=== PATIENT | male | born 1980 | race Caucasian/White ===

== ENCOUNTER 2023-02-14 09:31 | Outpatient (CLI) | payer OTHER, SELFPAY ==
[2023-02-14 18:29] LABS: Anion Gap 9 mmol/L (8-16); Blood Urea Nitrogen 18 mg/dL (9-20); Carbon Dioxide 30 mmol/L (22-30); Chloride 102 mmol/L (98-107); Cholesterol 190 mg/dL (0-200); Estimated Glomerular Filt Rate > 60; Glucose 104 mg/dL (65-110); HDL Direct 26 mg/dL; Potassium 4.1 mmol/L (3.4-5.0); Sodium 141 mmol/L (137-145); Triglycerides 524 mg/dL (<150)
[2023-02-14 18:32] LABS: Basophils Absolute Auto 0.1 K/mm3 (0.0-0.1); Basophils Percent Auto 0.9 % (0.2-1.2); Eosinophils Absolute Auto 0.1 K/mm3 (0-0.3); Eosinophils Percent Auto 1.4 % (0-4.4); Hematocrit 47.6 % (42.0-52.0); Hemoglobin 15.6 g/dL (14.0-18.0); Immature Granulocyte Absolute 0.04 K/mm3 (0.00-0.031); Immature Granulocyte Percent A 0.5 % (0-0.5); Lymphocytes Absolute Auto 1.77 K/mm3 (0.9-3.2); Lymphocytes Percent Auto 22.5 % (18.3-44.2); Mean Corpuscular HGB Conc 32.8 g/dl (32-36); Mean Corpuscular Hemoglobin 29.1 pg (26-34); Mean Corpuscular Volume 88.8 fl (80-100); Mean Platelet Volume 11.8 fl (7.4-10.4); Monocytes Absolute Auto 0.6 K/mm3 (0.1-0.6); Monocytes Percent Auto 7.3 % (2.6-8.5); Neutrophils Absolute Auto 5.3 K/mm3 (1.3-6.7); Neutrophils Percent Auto 67.4 % (45.5-73.1); Platelet Count Result 195 k/mm3 (150-375); Red Blood Count 5.36 M/mm3 (4.6-6.20); Red Cell Distribution Width 13.3 % (11.5-14.5); White Blood Count 7.9 K/mm3 (4.5-10.0)
[2023-02-14 18:39] LABS: LDL Cholesterol Direct 71 mg/dL
== END 2023-02-14 09:32 | disposition home or self-care (01) ==
LOC: ANHGOSHLAB 09:32
PROVIDERS: PCP Family Medicine; Visit Provider Nurse Practitioner Family
DX: Z00.00 Encounter for general adult medical examination without abnormal findings (principal)
CPT/HCPCS: 36415; 80048; 80061; 84443; 85025

== ENCOUNTER → 2023-04-02 14:37 | Outpatient (CLI) | payer OTHER, SELFPAY ==
--- NOTE | ~2023-04-02 | MR_ITS ---
EXAMINATION: MR lumbar spine wo con DATE: 04/02/2023 15:18 INDICATION: Other intervertebral disc displacement. Low back pain. TECHNIQUE: Magnetic resonance imaging (MRI) of the lumbar spine was performed without intravenous con trast. Sequences included sagittal T2-weighted FSE, sagittal T2-weighted FS FSE, sagittal T1-weighted FSE, and axial T2-weighted FSE. COMPARISON: Lumbar spine MRI 11/24/2017 FINDINGS: There is 3 mm retrolisthesis of L2 on L3 and L3 on L4. There is a chronic right L5 pars def ect. There is 3 mm anterolisthesis of L5 on S1. There are Schmorl's nodes in multiple levels. There i s mildly decreased disc height at L2-L3 and L3-L4 and severely decreased disc height at L4-L5. The di stal spinal cord signal intensity is normal. The conus medullaris is at L1. The following disc levels are specifically discussed: L1-L2: There is a central protrusion. There is moderate bilateral facet joint osteoarthritis. There i s no neural foraminal stenosis. There is mild central canal stenosis. L2-L3: The disc is bulging. There is moderate bilateral facet joint osteoarthritis. There is mild yosvany ateral neural foraminal stenosis. There is mild central canal stenosis. L3-L4: The disc is bulging and has an annular fissure. There is mild right and moderate left facet lamar int osteoarthritis. There is mild bilateral neural foraminal stenosis. There is mild central canal st enosis. L4-L5: The disc is bulging with superimposed central extrusion. There is mild right and moderate left facet joint osteoarthritis. There is mild bilateral neural foraminal stenosis. There is mild central canal stenosis. L5-S1: The disc is bulging. There is severe bilateral facet joint osteoarthritis. There is no neural foraminal stenosis. There is mild central canal stenosis. IMPRESSION: 1. Severe lumbar spondylosis, slightly worsened from 11/24/2017. 2. Chronic right L5 pars defect. Reviewed, dictated and finalized at location A.
== END ==
PROVIDERS: PCP Family Medicine; Visit Provider Nurse Practitioner Family
DX: M51.27 Other intervertebral disc displacement, lumbosacral region (principal); M54.9 Dorsalgia, unspecified; M43.06 Spondylolysis, lumbar region; M53.86 Other specified dorsopathies, lumbar region
CPT/HCPCS: 72148

== ENCOUNTER 2023-08-06 16:05 | Outpatient (CLI) | payer OTHER, SELFPAY ==
--- NOTE | ~2023-08-06 | XR_ITS ---
EXAM: XR ankle LT min 3V DATE: 08/06/2023 16:16 HISTORY: Effusion,swelling, medial left ankle pain x1.5month, no inj . COMPARISON: None available. FINDINGS: Normal mineralization. No fracture or dislocation. No lytic or blastic lesion. Mild degene rative change at the tibiotalar joint. Moderate plantar enthesopathy. No erosion or periosteal change . Soft tissues within normal limits. IMPRESSION: No acute osseous finding in the left ankle. Reviewed, dictated and finalized at location K. ECT PRODUCT MANAGER
== END 2023-08-06 16:06 ==
PROVIDERS: PCP Nurse Practitioner Family; Visit Provider Nurse Practitioner Family
DX: M25.472 Effusion, left ankle (principal)
CPT/HCPCS: 73610

== ENCOUNTER 2023-08-27 08:03 | Outpatient (CLI) | payer OTHER, SELFPAY ==
--- NOTE | ~2023-08-27 | MR_ITS ---
EXAMINATION: MR ankle LT wo con DATE: 08/27/2023 09:02 INDICATION: Left ankle effusion with pain and burning sensation at the medial ankle TECHNIQUE: Magnetic resonance imaging (MRI) of the left ankle was performed without intravenous contr ast. Sequences included sagittal, coronal, and axial proton-density weighted fast spin echo without a nd with fat saturation. COMPARISON: None. FINDINGS: Medial ankle ligaments: Deep and superficial deltoid ligaments as well as the spring ligament are normal. Lateral ankle ligaments: The anterior and posterior inferior tibiofibular ligaments are normal. The anterior talofibular, calc aneofibular and posterior talofibular ligaments are normal. Tendons: Achilles tendon is normal. Small amount of fluid in the peroneal tendon sheath consistent with mild t enosynovitis. The peroneus longus longus tendon is normal. There is mild tendinopathy and a longitudi nal split tear of the peroneus brevis tendon which appears distal to the level of the tip of the late ral malleolus. The tibialis anterior and extensor hallucis longus and extensor digitorum longus tendo ns are normal. The flexor digitorum longus and flexor hallucis longus tendons are normal. Additional mild tibialis posterior tenosynovitis. There is moderate tendinopathy of the tibialis posterior tendo n with full-thickness tear with the ragged tear margins position 3 cm above level of the tibiotalar j oint line. The proximal and distal tear margins are within relatively close proximity however estimat e that there is up to 3 cm retraction of the tear. Quantitative assessment is however limited due to the irregular margins and length of the tendon over which the tear occurs. Plantar fascia: Mild thickening and increased signal of the central component of the plantar aponeurosis with small e nthesophyte at its calcaneal origin consistent with mild chronic enthesopathy. No associated marrow o r surrounding soft tissue edema to suggest acute plantar fasciitis. Bones/other: There is localized mild likely reactive marrow edema along the retromalleolar groove of the medial ma lleolus underlying the torn tibialis posterior tendon. There is also some surrounding subcutaneous ed erika. Bone alignment is normal. No fracture or pathologic marrow replacing process. Prominent enthesop hytes along the dorsal rim of the head of the talus. Mild osteoarthritis at the ankle, talonavicular joint and the anterior facet of the subtalar joint. Fluid: Physiologic amount fluid in the joint spaces. IMPRESSION: 1. Tibialis posterior tenosynovitis, moderate tendinopathy and full-thickness tear. 2. Mild peroneal tenosynovitis with mild tendinopathy and longitudinal split tear of the distal peron eus brevis tendon. 3. 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 Reviewed, dictated and finalized at location A. NG OFFICER IMPRESSION: 1. Tibialis posterior tenosynovitis, moderate tendinopathy and full-thickness t ear. 2. Mild peroneal tenosynovitis with mild tendinopathy and longitudinal split te ar of the distal peroneus brevis tendon. 3. 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
== END 2023-08-27 08:04 ==
PROVIDERS: PCP Family Medicine; Visit Provider Nurse Practitioner Family
DX: M25.472 Effusion, left ankle (principal); M19.072 Primary osteoarthritis, left ankle and foot
CPT/HCPCS: 73721

== ENCOUNTER 2023-10-16 00:58 | Day surgery (SDC) | payer OTHER, SELFPAY ==
[2023-10-10 14:15] VITALS: BMI 31.9
--- NOTE | 2023-10-10 14:39 | SUR.PREOP ---
Report to the Outpatient Waiting Room, entrance under the green pavilion located off [facility], at time 0600 on date 10/10/23. Planned Procedure Time: 0730. Time changes happen often and if your time is changed the preop area will call you the afternoon before. - You and your visitor will be asked to self-screen and do not enter if you have any COVID symptoms. - A mask is optional within the hospital at this time. Patients may have clear liquids (water, carbonated beverages, clear teas, apple juice) until 3 hours prior to surgery with a maximum of 20 ounces. - No food from midnight until time of surgery - Infants may have breast milk until 4 hours before surgery, infant formula 6 hours prior to surgery. - Children will be allowed to drink immediately following surgery. If applicable, please bring a bottle or sippy cup to assist with drinking. Juice, water, soda, and popsicles are readily available. For infants on formula, please bring formula the day of surgery. Pacifiers are allowed. Take the following medications with a SIP of water the morning of surgery: Gabapentin DO NOT STOP ANY OF YOUR OTHER PRESCRIPTION MEDICATIONS PRIOR TO SURGERY ?EXCEPT THE FOLLOWING Medications to discontinue per physician: Call Dr. Orellana's office to clarify if Diclofenac needs stopped prior to procedure. Date to take last dose Please no make-up, nail mozambican, hairspray, perfume, deodorant, or body powder the day of surgery. No jewelry (including any body piercings) or valuables the day of surgery, leave them at home. Please take a shower or bath the night before, or the morning of, surgery with an antibacterial soap. Wear comfortable, loose fitting clothing. Children are encouraged to wear pajamas. - Jewelry must be removed prior to entering the operating room. Rings and piercings that are not removed may be cut off. - The hospital will not accept responsibility for valuables. - Please leave all valuables, including medications, at home the day of surgery. If you are going home after surgery, a licensed tier truck driver must drive you home. - NO public transportation without another adult if you receive anesthesia. - We recommend that an adult stay with you for 24 hours following discharge. - We also recommend that you do not drive, make important decision, drink alcoholic beverages, or take any drugs that were not prescribed by your health care provider for at least 24 hours after your discharge time. For Pediatric surgeries, we recommend two adults accompany the child home. Follow any additional instructions given to you from your surgeon. If you or anyone in your household have experienced Covid symptoms in the past week, please notify your surgeon or the nurse liaison at the phone number below for possible testing. Telephone instructions given to patient- Randy and asked if any additional questions and then verbalized understanding. Patient advised to call surgeon office or pre surgery nurse liaison [phone] if any additional questions.
--- NOTE | 2023-10-15 13:14 | WPDANESEPPF ---
Anes - Initial Pre Proc Eval Procedure: Operation Date: 10/16/23 07:30 Proposed Procedures p Left Posterior Tibia Tendon Reconstruction with Tendon Transfer, Calcaneal Osteotomy, Spring Ligament Reconstruction, Possible Subtalar Implant - Petr Orellana MD Date/Time: 10/15/23 13:14 Surgeon: Petr Orellana MD Pre Op Diagnosis: Lt post tibial tendon dysfunction, flat foot(cont) Patient Data Age: 43 Gender: M Height: 1.83 m Weight: 106.8 kg Allergies Allergy/AdvReac Type Severity Reaction Status Date / Time No Known Allergies Allergy Verified 10/10/23 14:14 Home Medications Medication Instructions Recorded Confirmed Type diclofenac sodium 50 mg 50 mg PO TID PRN pain #90 tabs 09/16/23 10/10/23 Rx tablet,delayed release gabapentin 400 mg capsule 400 mg PO TID #90 caps 10/07/23 10/10/23 Rx hydrocodone 7.5 mg-acetaminophen 1 tablet PO Q3H PRN pain #30 tabs 10/16/23 Rx 325 mg tablet ondansetron 8 mg disintegrating 8 mg PO Q8H PRN nausea and 10/16/23 Rx tablet vomiting #10 tabs polyethylene glycol 3350 17 gram 17 g PO DAILY PRN constipation #14 10/16/23 Rx oral powder packet ea sennosides 8.6 mg-docusate sodium 1 tab-cap PO BID PRN constipation 10/16/23 Rx 50 mg tablet (Senna with Docusate #20 tabs Sodium) Patient hx anesthesia problems: none Family hx anesthesia problems: none Results Review: All pre-operative results and documents have been reviewed as part of the pre-operative evaluation. [facility] Past Medical History Medical History Acquired pes planovalgus of left foot Acute midline low back pain with right-sided sciatica Calcaneovalgus deformity of left foot Lumbosacral spondylosis with radiculopathy Other intervertebral disc displacement, lumbosacral region Posterior tibial tendon dysfunction (PTTD) of left lower extremity Spinal stenosis of lumbar region Family History Family History Mother Family history of malignant neoplasm Hypertension Grandparent Family history of malignant neoplasm Social History Social History Social History: caffeine use Smoking status: Never smoker Second hand tobacco smoke exposure: No Alcohol intake: never Substance use: never Substance use type: does not use Lack of Transportation: No Lack of Food: Never True Current Housing: I Have Housing Concerned About Future Housing: No Difficulty Paying Gas/Electric Bills: No Difficulty Paying for Meds: No Currently Unemployed: No Education: High School Diploma/GED Difficulty w/ Childcare or Family Care: No Living arrangements: with family Occupation/Education: occupation Additional occupation/education comments: [employer] Gender identity (if verbalized by the patient): Male Sexual Orientation (if Verbalized by the Patient): Straight or Heterosexual Spiritual care concerns: No Agree to blood products: Yes Anes - Eval Final PreProcedure Day of Procedure 10/15/23 13:14 Patient weight: obese Heart: regular rate and rhythm Lungs: clear to auscultation Airway: Mallampati scale class II Neurological: alert and oriented Last oral intake: >/= 8 hours ASA classification: II Emergent: no Anesthetic plan: proceed Anesthesia type and monitoring: general LMA and standard monitoring Results Review: All pre-operative results and documents have been reviewed as part of the pre-operative evaluation. Informed Consent: The patient's anesthetic plan and its attendant risks and benefits were discussed with the patient/family/POA. Questions were solicited and answers provided to the satisfaction of the patient/family/POA.
[2023-10-16] VITALS (9 sets, daily range): BP systolic 96–138; BP diastolic 61–89; PULSE 78–89; RESP 12–20; TEMP 36.7; O2SAT 98–100
--- NOTE | ~2023-10-16 | XR_ITS ---
EXAMINATION: XR surgery orthopedic DATE: 10/16/2023 09:47 INDICATION: Left posterior tibial tendon reconstruction TECHNIQUE: A fluoroscopic images of the left ankle and hindfoot were obtained during procedure perfor med by Dr. Orellana. Radiologist was not present for the imaging or procedure. The amount of fluorosco py time used during this procedure was 0.8 minutes. COMPARISON: 09/16/2023 FINDINGS: Images demonstrate a calcaneal realignment osteotomy which is fixed with a pair of cannulated lag scr ews. Subtalar arthroereisis with placement of a metallic implant which projects over the sinus Tarsi. Final image demonstrates tissue retractors on either side of the lucency projecting over the mid and hindfoot. A cutaneous wire projects across the central portion of the talus across the sinus Tarsi w ith distal tip projecting over the subtalar calcaneus. Bone alignment appears near-anatomic. No fract ures identified. Joint spaces appear relatively preserved. IMPRESSION: 1. Fluoroscopy utilized during orthopedic procedure at the left hindfoot which includes internally fi xed calcaneal realignment osteotomy and a subtalar arthroereisis. See procedure note for further deta il. Reviewed, dictated and finalized at location A. 3RD GRADE TEACHER IMPRESSION: 1. Fluoroscopy utilized during orthopedic procedure at the left hindfoot which includes internally fixed calcaneal realignment osteotomy and a subtalar arthro ereisis. See procedure note for further detail.
[2023-10-16] MEDS: ACETAMINOPHEN 500 MG TABLET 1000 MG PO (06:30)
[2023-10-16] MEDS: KETOROLAC 15 MG/ML VIAL (*BKC) IV PUSH (06:30)
[2023-10-16] MEDS: LACTATED RINGERS 1,000 ML 30 ML IV CONT ×2 (06:45→10:25)
--- NOTE | 2023-10-16 07:17 | WPDHPUPDATE1 ---
History and Physical Update Update Date/Time: 10/16/23 07:17 History and Physical has been reviewed, including an updated exam of the patient. There are NO changes in the patient's condition. Risks, benefits, and alternatives have been discussed and questions answered. Patient agrees to proceed with procedure.
--- NOTE | 2023-10-16 07:20 | WPDANESPNB ---
Anes - Peripheral Nerve Block Date/Time: 10/16/23 07:20 I have discussed with the patient/family/POA the placement of a peripheral nerve block for post-operative pain management, including associated risks, benefits, complications, and side effects. Alternative methods of post-operative analgesia were detailed. Questions were solicited and answers provided to the satisfaction of the patient/family/POA. Time-Out: A pre-procedural Time-Out was completed immediately before starting the procedure and confirmed: Patient Identification, Site, Procedure, Patient Position and the Availability of Requisite Equipment. Clinical Indications: Acute post-operative pain management requested by the operative surgeon. Nerve Block Insertion Note Anes-nerve block: posterior fossa sciatic left and adductor canal left Patient position: supine (for adductor canal) and other (right lateral for popliteal) Skin prep: chlorhexidine Needle: 22 gauge, stimulating, insulated echogenic needle. Needle length: 80 mm Technique: nerve stimulation lost at (mA) (for popliteal lost at 0.2) and ultrasound Injectate: bupivacaine 0.5% with epi 5 mcg/ml (20 mL for popliteal, 10 mL for adductor canal (no epi)) Observations: tolerated well Complications: none Procedure start time:: 722 Procedure end time:: 735
[2023-10-16] MEDS: ceFAZolin 2 GM/D5W 50 ML 2 GM/50 ML BAG IVPB (07:42)
--- NOTE | 2023-10-16 10:42 | W.PM.PROC2 ---
Procedure Note - Detailed Date of Procedure 10/16/23 Pre-op Diagnosis Lt post tibial tendon dysfunction, flat foot(cont) Post-op Diagnosis Same Procedure Performed Left foot calcaneal osteotomy, posterior tibial tendon reconstruction, spring ligament reconstruction, subtalar implant. Surgeon Petr Orellana MD Lay Out Inspector 1St social research assistant Anesthesia General Indications 43-year-old with severe left pes posterior tibial tendon rupture. Presents for operative treatment. He has failed non operative treatment custom bracing, physical therapy, activity modification medications. MRI demonstrates posterior tibial tendon rupture. Findings Complete rupture posterior tibial tendon degenerative changes of the distal tendon. Laxity of the spring ligament. Description of Procedure Patient identified in the preoperative holding. Informed consent given. Operative extremity marked. Patient received intravenous antibiotics. Patient brought to the operating room where underwent general anesthetic by anesthesia team. Positioned supine on operating room table. Time-out performed confirming the patient, site of the surgery and the plan. Left leg prepped draped usual sterile surgical fashion using a ChloraPrep skin solution. Foot and ankle exsanguinated and thigh tourniquet inflated to 250 mmHg. Oblique incision made over the lateral tuberosity of the calcaneus with fluoroscopy for guidance with 15 blade knife. Hemostasis controlled electrocautery. Sural nerve isolated and protected. Dissection down to the lateral border of the calcaneus. Osteotomy then performed from lateral to medial with sagittal saw and completed with an osteotome across the posterior tuberosity. Tuberosity translated medially approximately 1 cm and provisionally pinned. Alignment checked with image intensification and fixation with 4.5 mm partially-threaded cannulated screws x2. Wound irrigated and soft tissue closed with 3-0 Monocryl interrupted suture and 4-0 nylon for the skin. Oblique incision made with 15 blade knife over the sinus tarsi. Hemostasis controlled electrocautery. Blunt dissection taken down to the capsule which was sharply incised in line with the skin incision. This allowed entry the guide pin into the sinus tarsi. This was verified with image intensification. Sizing was done starting with 7 mm proceeding up to a 9 mm. The image intensification taken alignment and yazdanism of the arch verified. The 9 mm implant was then placed over the guide pin. This was irrigated and closed with 3-0 Monocryl and 4-0 nylon suture. Curvilinear incision then made for the medial malleolus to the navicular and with a 15 blade knife. Hemostasis controlled electrocautery. Posterior tibial tendon sheath incised in line with skin incision and a complete rupture of the posterior tibial tendon was noted. Tendon was sharply removed. The flexor digitorum was then isolated deep in the wound and brought out and transected distally under direct visualization. 6 mm drill hole then made from dorsum to plantar in the medial navicula min verified with image intensification. Suture anchor placed in the calcaneus sustentaculum verified with image intensification. This had 2 limbs of internal brace suture tape. The tendon transfer and plantar limb of the suture tape were brought through the navicula from plantar to dorsal. 2Nd limb of the internal brace was brought from dorsal to plantar correct tension was verified and fixation was achieved with a 6.25 mm bio tenodesis screw. Image intensification confirmed final alignment. Wound thoroughly irrigated and the tendon sheath repaired with 0 Vicryl interrupted suture. Subcutaneous tissue repaired with 2-0 Vicryl and 3-0 Monocryl interrupted suture and skin repaired with 4-0 nylon running suture. Tourniquet released. Sterile dressing applied. The patient was then woken from anesthesia, extubated and taken to the recovery room in stable condition. All s
== END 2023-10-16 12:42 | disposition home or self-care (01) ==
PROVIDERS: PCP Family Medicine; Visit Provider Orthopaedic Surgery
PROC: (CPT 28750; principal; 2023-10-16 07:30)
DX: M76.822 Posterior tibial tendinitis, left leg (principal); M24.272 Disorder of ligament, left ankle; M21.42 Flat foot [pes planus] (acquired), left foot; M21.072 Valgus deformity, not elsewhere classified, left ankle; E66.9 Obesity, unspecified; G89.18 Other acute postprocedural pain; Z68.32 Body mass index [BMI] 32.0-32.9, adult; Z79.891 Long term (current) use of opiate analgesic; Z80.9 Family history of malignant neoplasm, unspecified
CPT/HCPCS: 64445; 64447; 28300; 27691; 27698; 28899; 99199; A9270; C1713; C1769; J0690; J1100; J1170; J1885; J2250; J2371; J2405; J2704; J3010; J7120

== ENCOUNTER 2024-12-16 00:53 | Day surgery (SDC) | payer OTHER, SELFPAY ==
[2024-12-06 15:26] VITALS: BMI 32.5
--- NOTE | 2024-12-06 15:28 | PC.NURSE ---
Report to the Outpatient Waiting Room, entrance under the green pavilion located off [facility], at time _1130_ on date _27-35-2221_. Planned Procedure Time: _130pm_.? Time changes happen often and if your time is changed the preop area will call you the afternoon before. - You and your visitor will be asked to self-screen and do not enter if you have any COVID symptoms. Please call surgeon if you need to reschedule. - A mask is optional within the hospital at this time. Patients may have clear liquids (water, carbonated beverages, clear teas, apple juice) until 3 hours prior to surgery with a maximum of 20 ounces. - No food from midnight until time of surgery and no smoking, or chewing tobacco (or any form of nicotine). No chewing gum, candy or mints. Take only the following medications with a SIP of water on the morning of surgery: __Gabapentin___ DO NOT STOP ANY OF YOUR OTHER PRESCRIPTION MEDICATIONS PRIOR TO SURGERY EXCEPT THE FOLLOWING Hold all vitamins and supplements for 3 days per anesthesiologist. Medications to discontinue per physician __Ibuprofen____ Date to take last enmu__[id number]____ Please no make-up, nail urdu, hairspray, perfume, deodorant, or body powder the day of surgery.? No jewelry (including any body piercings) or valuables the day of surgery, leave them at home.? Please take a shower or bath the night before, or the morning of, surgery with an antibacterial soap.? Wear comfortable, loose fitting clothing. - Jewelry must be removed prior to entering the operating room.? Rings and piercings that are not removed may be cut off. - The hospital will not accept responsibility for valuables.? - Please leave all valuables, including medications, at home the day of surgery. If you are going home after surgery, a licensed transit mixer driver must drive you home.? - NO public transportation without another adult if you receive anesthesia. - We recommend that an adult stay with you for 24 hours following discharge. - We also recommend that you do not drive, make important decision, drink alcoholic beverages, or take any drugs that were not prescribed by your health care provider for at least 24 hours after your discharge time. Follow any additional instructions given to you from your surgeon. Telephone instructions given to __Randy__and asked if any additional questions and then verbalized understanding. Patient advised to call surgeon office or pre surgery nurse liaison [phone] if any additional questions.
--- NOTE | 2024-12-15 14:00 | PM.IMHP ---
H&P: HPI History of Present Illness Date/Time: 12/15/24 14:00 Chief Complaint: Left foot pain Narrative: Patient is 1 year s/p Left foot calcaneal osteotomy, posterior tibial tendon reconstruction, spring ligament reconstruction, subtalar implant (DOS: 10/16/23) He states he has still noticed pain at the anterior/lateral ankle/foot pain. He states he has swelling in dorsum of foot, and tingling in toes. He reports he is still have cramping in the calf. He had a cortisone injection 06/2024 and states it only last about a month. He is ready to discuss MIGUEL ANGEL. Involved foot/ankle: left Location of pain: medial malleolus and dorsal foot Character: throbbing PMFSH Past Medical History Medical History Plantar fasciitis of right foot Painful orthopaedic hardware Encounter for postoperative care Calcaneovalgus deformity of left foot Acquired pes planovalgus of left foot Posterior tibial tendon dysfunction (PTTD) of left lower extremity Spinal stenosis of lumbar region Other intervertebral disc displacement, lumbosacral region Lumbosacral spondylosis with radiculopathy Acute midline low back pain with right-sided sciatica Family History Family History Mother Family history of malignant neoplasm Hypertension Grandparent Family history of malignant neoplasm Social History Social History Social History: caffeine use Smoking status: Never smoker Second hand tobacco smoke exposure: No Alcohol intake: never Substance use: never Substance use type: does not use Lack of Transportation: No Lack of Food: Never True Current Housing: I Have Housing Concerned About Future Housing: No Difficulty Paying Gas/Electric Bills: No Difficulty Paying for Meds: No Currently Unemployed: No Education: High School Diploma/GED Difficulty w/ Childcare or Family Care: No Living arrangements: with family Occupation/Education: occupation Additional occupation/education comments: [employer] Gender identity (if verbalized by the patient): Male Sexual Orientation (if Verbalized by the Patient): Straight or Heterosexual Spiritual care concerns: No Agree to blood products: Yes Meds Home Medications and Allergies Home Medications ?Medication ?Instructions ?Recorded ?Confirmed ?Type gabapentin 600 mg tablet See Rx Instructions .Route 10/06/24 12/06/24 Rx .COMPLEX #120 tabs ibuprofen 200 mg tablet (Addaprin) 600 mg PO TID PRN pain 12/06/24 12/06/24 History Allergies Allergy/AdvReac Type Severity Reaction Status Date / Time No Known Allergies Allergy Verified 12/06/24 15:19 Exam Const: General: No confusion Orientation/consciousness: No confusion HENMT: Head: normal to inspection, normocephalic and atraumatic Eyes: Conjunctivae: conjunctivae normal Sclera: sclerae normal Neck: Neck: supple and nontender Chest: Chest palpation & inspection: normal inspection of the chest Resp: Effort & Inspection: normal respiratory effort and no audible wheezes Cardio: Rate: regular rate Rhythm: regular rhythm : General: Yes deferred Skin: General skin exam: no rashes or lesions noted Neuro: General: No confusion Extrem: General: capillary refill normal Right upper extremity: normal to inspection Left upper extremity: normal to inspection Right lower extremity: normal to inspection, hip/thigh Details: normal to inspection, ankle Details: no tenderness and no swelling and foot Details: normal capillary refill, toes with normal ROM and vascular exam Details: dorsalis pedis pulse present and normal capillary refill Left lower extremity: hip/thigh Details: normal to inspection, knee Details: normal to inspection and knee ligament exam normal Details: anterior drawer test normal, valgus stress test normal, varus stress test normal and Kris's test normal, ankle (no calf tenderness) Details: abnormal to inspection ( diffuse swelling ankle joint), tenderness ( lateral ankle and subtalar joint), swelling (moderate anterior ankle) Details: anteriorly, abnormal ROM ( ankle dorsiflexion 0, plantar flexion 40, inversion 15, eversion 5) Details: pain with active ROM and pain with passive ROM, crepitus Details: other ( ankle joint) and other ( good capillary refill in toes, 2+ DP pulse, light touch sensation intact) and foot Details: normal capillary refill, abnormal to inspection ( cavus deformity, mild heel varus) Details: joint swelling ( sinus tarsi) and erythematous ( dorsum of the forefoot), tenderness ( sinus tarsi /subtalar joint), toes with normal ROM, crepitus Location: at the lateral foot Location: proximally, vascular exam Details: dorsalis pedis pulse present and motor-sensory exam light-touch normal Psych: Affect: normal affect Assessment and Plan Assessment and plan (1) Painful orthopaedic hardware: Code(s): T84.84XA - Pain due to internal orthopedic prosthetic devices, implants and grafts, initial encounter Status: Acute Assessment and Plan: Discussed nonoperative and operative treatment options with the patient. Risks and benefits of each as well as alternatives were reviewed. All of the patient's questions were answered. The risks of surgery reviewed including but not limited to: Neurovascular damage, wound complication, infection, blood clot, pulmonary embolus, stroke, myocardial infarction, and anesthetic risks up to and including . Continued pain and possible dysfunction were explained. Specific risks of the procedure including later recurrence of deformity. No guarantees were offered. If complications occur, the patient understands the need for further treatment, possible further surgery. Patient verbalizes understanding and wishes to proceed. PLAN: Removal hardware left foot (sinus tarsi, calcaneus) (2) Calcaneovalgus deformity of left foot: Code(s): Q66.6 - Other congenital valgus deformities of feet Status: Acute (3) Acquired pes planovalgus of left foot: Code(s): M21.42 - Flat foot [pes planus] (acquired), left foot Status: Acute (4) Plantar fasciitis of right foot: Code(s): M72.2 - Plantar fascial fibromatosis Status: Acute Assessment and Plan: Stretching exercises. May consider cortisone injection.
[2024-12-16] VITALS (8 sets, daily range): BP systolic 113–130; BP diastolic 74–97; PULSE 65–74; RESP 10–20; TEMP 36.3–36.9; O2SAT 97–100; BMI 33.0
--- NOTE | ~2024-12-16 | XR_ITS ---
INTRAOPERATIVE FLUOROSCOPY: CLINICAL HISTORY: 44 years old Male; 3 PIECES OF HARDWARE REMOVED FROM LEFT HEEL PROCEDURE COMMENTS: Limited intraoperative fluoroscopy of the left foot was performed. CUMULATIVE DOSE: 2.5 mGy FLUOROSCOPY TIME: 57 seconds FINDINGS/IMPRESSION: Please refer to operative note for further details. Reviewed, dictated and finalized at location A.
--- OUTSIDE RECORDS SUMMARY | 2024-12-16 01:06 | XMS_ITS | Referral Summary ---
Author Organization [address] [address] Care Team Providers Care Shot Tube Machine Tender Name Role Phone No, Physician Primary Care Provider [phone] Encounters Date Type Department Care Team Description 09/29/2024 Orders Only [facility] Reproductive Endocrinology [address] [place] [phone] Marcio Calderon MD 09/20/2024 2:00 PM STATISTICIAN MATHEMATICAL Clinical Support [facility] Reproductive Endocrinology Lab [address] [place] [phone] Encounter for screening for infections with predominantly sexual mode of transmission (Primary Dx) 09/20/2024 12:57 PM STATISTICIAN MATHEMATICAL - 09/20/2024 11:59 PM STATISTICIAN MATHEMATICAL Hospital Encounter [address] [address] Encounter for screening for infections with predominantly sexual mode of transmission Discharge Disposition: Discharge to home or self care from Last 3 Months Allergies No known active allergies Medications No known medications Social History Tobacco Use Types Packs/Day Years Used Date Smoking Tobacco: Never Assessed Sex and Gender Information Value Date Recorded Sex Assigned at Not on file Legal Sex Male 5:50 PM STATISTICIAN MATHEMATICAL Gender Identity Not on file Sexual Orientation Not on file Plan of Treatment Not on file Procedures Procedure Name Priority Date/Time Associated Diagnosis Comments HEPATITIS C ANTIBODY Routine 09/20/2024 1:56 PM STATISTICIAN MATHEMATICAL Encounter for screening for infections with predominantly sexual mode of transmission HEPATITIS B SURFACE ANTIGEN Routine 09/20/2024 1:56 PM STATISTICIAN MATHEMATICAL Encounter for screening for infections with predominantly sexual mode of transmission HIV 1/2 ANTIBODY PLUS P24 ANTIGEN Routine 09/20/2024 1:56 PM STATISTICIAN MATHEMATICAL Encounter for screening for infections with predominantly sexual mode of transmission RPR Routine 09/20/2024 1:56 PM STATISTICIAN MATHEMATICAL Encounter for screening for infections with predominantly sexual mode of transmission from Last 3 Months Results * HIV 1/2 Antibody plus p24 Antigen Blood (09/20/2024 1:56 PM STATISTICIAN MATHEMATICAL) Pathologist [facility] HIV 1/2 ab + p24 ag Nonreactive Nonreactive Comment:Nonreactive for HIV- 1 antigen and HIV-1/HIV-2 antibodies. No laboratory evidence of HIV infection. If acute HIV infection is suspected, consider testing for HIV-1 RNA. Current interpretive data was last revised on 22. Blood 09/20/2024 1:56 PM STATISTICIAN MATHEMATICAL 09/20/2024 6:39 PM STATISTICIAN MATHEMATICAL Marcio Calderon MD LAB MICROBIOLOGY - GENERAL ORDERABLES Final Result [facility] Department of [employer] [place] [place] [address] * Hepatitis C antibody Blood (09/20/2024 1:56 PM STATISTICIAN MATHEMATICAL) [facility] Hep C Ab Nonreactive Nonreactive Comment:Antibodies to HCV no t detected. Does NOT exclude the possibility of recent exposure to HCV. Current interpretive data was last revised on 22 Blood 09/20/2024 1:56 PM STATISTICIAN MATHEMATICAL 09/20/2024 6:39 PM STATISTICIAN MATHEMATICAL Marcio Calderon MD LAB MICROBIOLOGY - GENERAL ORDERABLES Final Result [facility] [employer] [place] [place] [address] * RPR Blood (09/20/2024 1:56 PM STATISTICIAN MATHEMATICAL) Pathologist [facility] RPR Nonreactive Nonreactive Blood 09/20/2024 1:56 PM STATISTICIAN MATHEMATICAL 09/20/2024 6:39 PM STATISTICIAN MATHEMATICAL Marcio Calderon MD LAB MICROBIOLOGY - GENERAL ORDERABLES Final Result [facility] [place] [address] * Hepatitis B Surface Antigen Blood (09/20/2024 1:56 PM STATISTICIAN MATHEMATICAL) HepBsAg Nonreactive Nonreactive Blood 09/20/2024 1:56 PM STATISTICIAN MATHEMATICAL 09/20/2024 6:39 PM STATISTICIAN MATHEMATICAL Marcio Calderon MD LAB MICROBIOLOGY - GENERAL ORDERABLES Final Result Performing Organization Address City/[facility] Co de Phone Number [facility] [place] [address] from Last 3 Months Insurance [employer] Care Teams Shot Tube Machine Tender Relationship Specialty Start Date End Date No, Physician PCP - General 08/21/23
--- OUTSIDE RECORDS SUMMARY | 2024-12-16 01:06 | XMS_ITS | Clinical Summary ---
Author Organization [address] [address] Care Team Providers Care Radiotelegrapher Name Role Phone No, Physician Primary Care Provider [phone] Allergies No known active allergies Medications No known medications Encounters Date Type Department Care Team Description 09/29/2024 Orders Only [facility] Reproductive Endocrinology [address] [place] [phone] Marcio Calderon MD 09/20/2024 2:00 PM TICKET COLLECTOR OR USHER Clinical Support [facility] Reproductive Endocrinology Lab [address] [place] [phone] Encounter for screening for infections with predominantly sexual mode of transmission (Primary Dx) 09/20/2024 12:57 PM TICKET COLLECTOR OR USHER - 09/20/2024 11:59 PM TICKET COLLECTOR OR USHER Hospital Encounter [address] [address] Encounter for screening for infections with predominantly sexual mode of transmission Discharge Disposition: Discharge to home or self care from Last 3 Months Social History Tobacco Use Types Packs/Day Years Used Date Smoking Tobacco: Never Assessed Sex and Gender Information Value Date Recorded Sex Assigned at Not on file Legal Sex Male 5:50 PM TICKET COLLECTOR OR USHER Gender Identity Not on file Sexual Orientation Not on file Plan of Treatment Health Maintenance Due Date Last Done Comments Depression Screening 1980 Varicella Vaccines (1 of 2 - 13+ 2-dose series) 1993 Hepatitis B Screening 1998 Regular Well Visit/Exam 18-64 1998 Covid-19 Vaccine (3 - 2023-2 5 season) 2024 03/25/2021, 02/21/2021 Influenza Vaccine (#1) 2024 DTaP/Tdap/Td Vaccine (2 - Td or Tdap) 09/16/2033 09/16/2023 Hepatitis C Screening Completed 09/20/2024 HPV Vaccines Aged Out No longer eligi ble based on patient's age to complete this topic Pneumococcal vaccine <65 Aged Out No longer eligible based on patient's age to complete this topic Procedures Procedure Name Priority Date/Time Associated Diagnosis Comments HEPATITIS C ANTIBODY Routine 09/20/2024 1:56 PM TICKET COLLECTOR OR USHER Encounter for screening for infections with predominantly sexual mode of transmission HEPATITIS B SURFACE ANTIGEN Routine 09/20/2024 1:56 PM TICKET COLLECTOR OR USHER Encounter for screening for infections with predominantly sexual mode of transmission HIV 1/2 ANTIBODY PLUS P24 ANTIGEN Routine 09/20/2024 1:56 PM TICKET COLLECTOR OR USHER Encounter for screening for infections with predominantly sexual mode of transmission RPR Routine 09/20/2024 1:56 PM TICKET COLLECTOR OR USHER Encounter for screening for infections with predominantly sexual mode of transmission from Last 3 Months Results * HIV 1/2 Antibody plus p24 Antigen Blood (09/20/2024 1:56 PM TICKET COLLECTOR OR USHER) HIV 1/2 ab + p24 ag Nonreactive Nonreactive Comment:Nonreactive for HIV- 1 antigen and HIV-1/HIV-2 antibodies. No laboratory evidence of HIV infection. If acute HIV infection is suspected, consider testing for HIV-1 RNA. Current interpretive data was last revised on 22. Blood 09/20/2024 1:56 PM TICKET COLLECTOR OR USHER 09/20/2024 6:39 PM TICKET COLLECTOR OR USHER us Marcio Calderon MD LAB MICROBIOLOGY - GENERAL ORDERABLES Final Result [facility] Department [place] [address] * Hepatitis C antibody Blood (09/20/2024 1:56 PM TICKET COLLECTOR OR USHER) Hep C Ab Nonreactive Nonreactive Comment:Antibodies to HCV no t detected. Does NOT exclude the possibility of recent exposure to HCV. Current interpretive data was last revised on 22 Blood 09/20/2024 1:56 PM TICKET COLLECTOR OR USHER 09/20/2024 6:39 PM TICKET COLLECTOR OR USHER Marcio Calderon MD LAB MICROBIOLOGY - GENERAL ORDERABLES Final Result Performing Organization Address City/[facility] Co de Phone Number [facility] [place] [address] * RPR Blood (09/20/2024 1:56 PM TICKET COLLECTOR OR USHER) RPR Nonreactive Nonreactive Blood 09/20/2024 1:56 PM TICKET COLLECTOR OR USHER 09/20/2024 6:39 PM TICKET COLLECTOR OR USHER Marcio Calderon MD LAB MICROBIOLOGY - GENERAL ORDERABLES Final Result Performing Organization Address City/[facility] [[email or web address]] de Phone Number [facility] [place] [address] * Hepatitis B Surface Antigen Blood (09/20/2024 1:56 PM TICKET COLLECTOR OR USHER) HepBsAg Nonreactive Nonreactive Blood 09/20/2024 1:56 PM TICKET COLLECTOR OR USHER 09/20/2024 6:39 PM TICKET COLLECTOR OR USHER Marcio Calderon MD LAB MICROBIOLOGY - GENERAL ORDERABLES Final Result Performing Organization Address City/[facility] [[email or web address]] [place] [address] from Last 3 Months Insurance [employer] Care Teams Radiotelegrapher Relationship Specialty Start Date End Date No, Physician PCP - General 08/21/23
--- NOTE | 2024-12-16 09:07 | WPDHPUPDATE1 ---
History and Physical Update Update Date/Time: 12/16/24 09:07 History and Physical has been reviewed, including an updated exam of the patient. There are NO changes in the patient's condition. Risks, benefits, and alternatives have been discussed and questions answered. Patient agrees to proceed with procedure.
--- NOTE | 2024-12-16 12:03 | SUR.PREOP ---
1203- Patient reports he has knee scooter at home to use post operatively, boot and post op shoe ordered to be sent home.
[2024-12-16] MEDS: LACTATED RINGERS 1,000 ML 30 ML IV CONT (12:40)
[2024-12-16] MEDS: ACETAMINOPHEN 500 MG TABLET 1000 MG PO (12:47)
[2024-12-16] MEDS: KETOROLAC 15 MG/ML VIAL (*BKC) IV PUSH (12:48)
--- NOTE | 2024-12-16 13:00 | SUR.PREOP ---
1300- Patient aware procedure start time delayed. He is denying needs at this time and verbalizes understanding.
--- NOTE | 2024-12-16 14:15 | WPDANESEPPF ---
Anes - Initial Pre Proc Eval Procedure: Operation Date: 12/16/24 13:30 Proposed Procedures p Removal Hardware Left Ankle - Petr Orellana MD Date/Time: 12/16/24 14:15 Surgeon: Petr Orellana MD Pre Op Diagnosis: painful orthopedic hardware Left Ankle Patient Data Age: 44 Gender: M Height: 1.83 m Weight: 110.6 kg Last Vital Signs Temp 98.4 F 12/16/24 12:05 Pulse 74 12/16/24 12:05 Resp 16 12/16/24 12:05 BP 127/97 H 12/16/24 12:05 Pulse Ox 97 12/16/24 12:05 O2 Del Method Room Air 12/16/24 12:05 Allergies Allergy/AdvReac Type Severity Reaction Status Date / Time No Known Allergies Allergy Verified 12/16/24 13:33 Home Medications ?Medication ?Instructions ?Recorded ?Confirmed ?Type gabapentin 600 mg tablet See Rx Instructions .Route 10/06/24 12/16/24 Rx .COMPLEX #120 tabs ibuprofen 200 mg tablet (Addaprin) 600 mg PO TID PRN pain 12/06/24 12/06/24 History hydrocodone 7.5 mg-acetaminophen 1 tablet PO Q6H PRN pain #20 tabs 12/16/24 Rx 325 mg tablet Patient hx anesthesia problems: none Family hx anesthesia problems: none Results Review: All pre-operative results and documents have been reviewed as part of the pre-operative evaluation. [facility] Past Medical History Medical History Plantar fasciitis of right foot Painful orthopaedic hardware Encounter for postoperative care Calcaneovalgus deformity of left foot Acquired pes planovalgus of left foot Posterior tibial tendon dysfunction (PTTD) of left lower extremity Spinal stenosis of lumbar region Other intervertebral disc displacement, lumbosacral region Lumbosacral spondylosis with radiculopathy Acute midline low back pain with right-sided sciatica Family History Family History Mother Family history of malignant neoplasm Hypertension Grandparent Family history of malignant neoplasm Social History Social History Social History: caffeine use Smoking status: Never smoker Second hand tobacco smoke exposure: No Alcohol intake: never Substance use: never Substance use type: does not use Lack of Transportation: No Lack of Food: Never True Current Housing: I Have Housing Concerned About Future Housing: No Difficulty Paying Gas/Electric Bills: No Difficulty Paying for Meds: No Currently Unemployed: No Education: High School Diploma/GED Difficulty w/ Childcare or Family Care: No Living arrangements: with family Occupation/Education: occupation Additional occupation/education comments: [employer] Gender identity (if verbalized by the patient): Male Sexual Orientation (if Verbalized by the Patient): Straight or Heterosexual Spiritual care concerns: No Agree to blood products: Yes Anes - Eval Final PreProcedure Day of Procedure 12/16/24 14:15 Patient weight: obese Lungs: normal air movement Airway: Mallampati scale class II Neurological: alert and oriented Last oral intake: >/= 8 hours ASA classification: II Emergent: no Anesthetic plan: proceed Anesthesia type and monitoring: general LMA and standard monitoring Results Review: All pre-operative results and documents have been reviewed as part of the pre-operative evaluation. Obesity. Informed Consent: The patient's anesthetic plan and its attendant risks and benefits were discussed with the patient/family/POA. Questions were solicited and answers provided to the satisfaction of the patient/family/POA.
[2024-12-16] MEDS: ceFAZolin 2 GM/D5W 50 ML 2 GM/50 ML BAG IVPB (15:06)
[2024-12-16] MEDS: BUPivacaine HCL 0.5% PF 30 ML VIAL INFILTRATE (15:35)
--- NOTE | 2024-12-16 16:10 | W.PM.PROC2 ---
Procedure Note - Detailed Date of Procedure 12/16/24 Pre-op Diagnosis painful orthopedic hardware Left Ankle Post-op Diagnosis Same Procedure Performed Removal of deep hardware x2 left foot. Surgeon Petr Orellana MD Tool Mechanic 1st service assistant Anesthesia General Indications 44-year-old man who is 1 year status post flatfoot reconstruction with Deep internal orthopedic hardware. Hardware is painful at the anterior and posterior heel. He desires removal. Findings Sinus tarsi implant and calcaneal screws removed Description of Procedure Patient identified in the preoperative holding. Informed consent given. Operative extremity marked. Patient received intravenous antibiotics. Patient brought to the operating room where underwent general anesthetic by anesthesia team. Positioned supine on operating room table. Time-out performed confirming the patient, site of the surgery and the plan. Left leg prepped draped usual sterile surgical fashion using a ChloraPrep skin solution. Foot exsanguinated and calf tourniquet inflated to 275 mmHg. Sinus tarsi addressed 1st. The previous incision was utilized and made with a 15 blade knife. Hemostasis controlled electrocautery. Fascia incised in line with the skin incision. Retractors placed and a guide pin was placed into the sinus tarsi implant and verified with image intensification. The implant was removed. Sinus tarsi was then debrided with a rongeur and thoroughly irrigated. Fascia closed with 3-0 Monocryl interrupted suture and skin repaired with 3-0 Monocryl running subcuticular stitch. The heel was then addressed. The previous posterior heel incision was made with a 15 blade knife. Rongeur was used to remove bone over the screws in the posterior calcaneus. Guide pin placed in the each of the cannulated screws in these removed with a screwdriver. 2 screws removed. Screw holes debrided with curette and irrigated. Image intensification confirmed removal of all the hardware. Incision closed with 3-0 Monocryl subcuticular interrupted suture and Dermabond. Tourniquet released. Sterile dressing applied. The patient was then woken from anesthesia, extubated and taken to the recovery room in stable condition. All sponge, needle, instrument counts were correct at the end of the case. Estimated Blood Loss 5 Tourniquet Time Total Tourniquet Time: 30 Drains No Packing No Complications None Condition Stable Disposition PACU [facility] Billing Surgery - Charge Forward: Surgery Billing ([id number] X 2)
== END 2024-12-16 17:51 | disposition home or self-care (01) ==
PROVIDERS: PCP Family Medicine; Visit Provider Orthopaedic Surgery
PROC: (CPT 20680; principal; 2024-12-16 13:30)
DX: T84.84XA Pain due to internal orthopedic prosthetic devices, implants and grafts, initial encounter (principal); M72.2 Plantar fascial fibromatosis; Q66.6 Other congenital valgus deformities of feet; M48.061 Spinal stenosis, lumbar region without neurogenic claudication; Y83.1 Surgical operation with implant of artificial internal device as the cause of abnormal reaction of the patient, or of later complication, without mention of misadventure at the time of the procedure; E66.9 Obesity, unspecified; Z68.33 Body mass index [BMI] 33.0-33.9, adult; Z79.1 Long term (current) use of non-steroidal anti-inflammatories (NSAID); Z79.891 Long term (current) use of opiate analgesic; Z80.9 Family history of malignant neoplasm, unspecified
CPT/HCPCS: 20680 ×2; 99199; A9270; J0690; J1010; J1885; J2003; J2250; J2405; J2704; J3010; J7120

== ENCOUNTER 2024-12-27 13:54 | Outpatient (CLI) | payer OTHER, SELFPAY ==
--- NOTE | ~2024-12-27 | XR_ITS ---
HISTORY: M25.572 - Pain in left ankle and joints of left foot COMPARISON: 11/10/2024 TECHNIQUE: 3 views of the left ankle were performed FINDINGS: No acute fracture or dislocation. Moderate diffuse soft tissue swelling. The ankle mortise is preserved. Bone mineralization is age-appropriate. Increased density within the soft tissues surrounding the operative bed for hardware removal. IMPRESSION: No acute fracture, as detailed above. Reviewed, dictated and finalized at location A.
== END 2024-12-27 13:55 | disposition home or self-care (01) ==
LOC: ANHBWCIMG 13:56
PROVIDERS: PCP Family Medicine; Visit Provider Orthopaedic Surgery
DX: M25.572 Pain in left ankle and joints of left foot (principal)
CPT/HCPCS: 73610